=== PATIENT | male | born 1995 | race Caucasian/White ===

== ENCOUNTER 2019-08-27 05:49 | Emergency (ER) | payer SELFPAY ==
--- NOTE | 2019-08-27 06:22 | EDM.PDOC ---
ED HPI GENERAL MEDICAL PROBLEM - General Chief Complaint: Respiratory Problem Stated Complaint: COUGHING Time Seen by Provider: 08/27/19 06:17 Source of Information: Reports: Patient History Limitations: Reports: No Limitations - History of Present Illness INITIAL COMMENTS - FREE TEXT/NARRATIVE: 23-year-old male with no significant medical problems but very remote history of pneumonia presents with subjective fever and some back pain when he lays down. Symptoms present for about 2 days. Patient says his "lungs are sore" when he lays down. He has a mild headache. It is mostly occipital. No vision changes no confusion. No weakness or numbness or rashes. No nausea or vomiting. Recent travel to [place] only. No sick contacts. No double vision. No dysuria. Patient is been taking no medication for the symptoms. body ache Pain Score (Numeric/FACES): 6 - Related Data Allergies Allergy/AdvReac Type Severity Reaction Status Date / Time No Known Allergies Allergy Verified 08/27/19 06:00 Home Meds: Home Meds . [No Known Home Meds] 08/27/19 [History] Past Medical History HEENT History: Reports: None Cardiovascular History: Reports: None Respiratory History: Reports: None Gastrointestinal History: Reports: None Genitourinary History: Reports: None Musculoskeletal History: Reports: None Neurological History: Reports: None Psychiatric History: Reports: None Endocrine/Metabolic History: Reports: None Insulin Pump Model and [employer]: N/A Hematologic History: Reports: None Immunologic History: Reports: None Oncologic (Cancer) History: Reports: None Dermatologic History: Reports: None - Infectious Disease History Infectious Disease History: Reports: None - Past Surgical History Head Surgeries/Procedures: Reports: None HEENT Surgical History: Reports: Tonsillectomy Social & Family History - Family History Family Medical History: Noncontributory - Tobacco Use Smoking Status *Q: Never Smoker - Caffeine Use Caffeine Use: Reports: Coffee - Recreational Drug Use Recreational Drug Use: No ED ROS GENERAL - Review of Systems Review Of Systems: Comprehensive ROS is negative, except as noted in HPI. ED EXAM, GENERAL - Physical Exam Exam: See Below Free Text/Narrative:: General: No acute distress. Comfortable. Heent: Examination revealed no pallor, no icterus, no lymphadenopathy. The patient has normal posterior pharynx, moist mucous membranes. Neck: Supple. No JVD. No rigidity. Heart: Normal rate. Reg rhythm. No murmurs appreciated. Lungs: Bilaterally clear to auscultation. No focal findings. Abdomen: Nontender, non-distended, soft, no CVA tenderness. Neuro: Pt is moving all four extremities. EOMI. PERRL. Normal speech. Skin: Exposed areas appeared normally perfused, warm, normal color with no meaningful rashes or lesions. Extremities: Peripheral examination revealed no pedal edema. Peripheral pulses were 2+. Course - Vital Signs Text/Narrative:: Well-appearing patient. Excellent saturations and normal vital signs. No fever here. Possibly no fever at home. No red flags for emergent disease. Anti-inflammatories, hydration, return to emergency with any new or troubling symptoms. Last Recorded V/S: Last Vital Signs Temp 97.9 F 08/27/19 06:00 Pulse 79 08/27/19 06:00 Resp 18 08/27/19 06:00 BP 138/85 08/27/19 06:00 Pulse Ox 96 08/27/19 06:00 Departure - Departure Time of Disposition: Disposition: Home, Self-Care 01 Condition: Good Clinical Impression: Flu-like symptoms - Discharge Information Referrals: PCP,None [Primary Care Provider] - Additional Instructions: Take ibuprofen which is the same thing as Advil which is the same thing as Motrin 2 or 3 tablets which is 400 or 600 mg every 6 hours consistently to help control your back discomfort as well as your fever and body aches. Drink plenty of fluids with this medication and to help keep yourself hydrated. You should be urinating clear 5 or 6 times a day if you are plenty hydrated. It is also important to return to emergency immediately with any new or troubling symptoms including difficulty breathing or difficulty keeping down fluids. The following information is given to patients seen in the emergency department who are being discharged to home. This information is to outline your options for follow-up care. We provide all patients seen in our emergency department with a follow-up referral. The need for follow-up, as well as the timing and circumstances, are variable depending upon the specifics of your emergency department visit. If you don't have a primary care physician on staff, we will provide you with a referral. We always advise you to contact your personal physician following an emergency department visit to inform them of the circumstance of the visit and for follow-up with them and/or the need for any referrals to a consulting specialist. The emergency department will also refer you to a specialist when appropriate. This referral assures that you have the opportunity for follow-up care with a specialist. All of these measure are taken in an effort to provide you with optimal care, which includes your follow-up. Under all circumstances we always encourage you to contact your private physician who remains a resource for coordinating your care. When calling for follow-up care, please make the office aware that this follow-up is from your recent emergency room visit. If for any reason you are refused follow-up, please contact the [facility] Emergency Department at and asked to speak to the emergency department charge nurse. Sepsis Event Note - Evaluation Sepsis Screening Result: No Definite Risk - Focused Exam Vital Signs: Vital Signs Temp Pulse Resp BP Pulse Ox 08/27/19 06:00 97.9 F 79 18 138/85 96 Date Exam was Performed: 08/27/19 Time Exam was Performed: 06:17
[2019-08-27] MEDS ORDERED: Ketorolac 30 MG/ML SDV IM ONE (06:23)
== END 2019-08-27 06:50 | disposition home or self-care (01) ==
LOC: MW.ED 05:49
DX: J11.1 Influenza due to unidentified influenza virus with other respiratory manifestations (principal)
CPT/HCPCS: 96372; 99284; J1885